=== PATIENT | female | born 1960 | race Caucasian/White ===

== ENCOUNTER 2020-01-08 19:00 | Inpatient (IN) ==
[2020-01-08] MEDS ORDERED: METOPROLOL TARTRATE 5 MG/5 ML VIAL IV ONE (19:27)
[2020-01-08] MEDS ORDERED: ASPIRIN 325 MG TABLET PO STA (19:28)
[2020-01-08] MEDS ORDERED: ACETAMINOPHEN 500 MG TABLET PO STA (19:28)
[2020-01-08] MEDS ORDERED: SODIUM CHLORIDE 0.9% 500 ML IV STA (19:28)
[2020-01-08] MEDS ORDERED: METOPROLOL TARTRATE 5 MG/5 ML VIAL IV STA (19:28)
[2020-01-08 19:37] LABS: Basophils # 0.1 10*3/uL (0.0-0.2); Basophils % 0.5 % (0.0-0.8); Eosinophils % 0.2 % (0.00-10.9); Hematocrit 42.5 VOL% (35.7-47.0); Immature Granulocytes % 0.5 %; Immature Granulocytes Absolute 0.08 #; Lymphocytes # 1.7 10*3/uL (1.4-4.0); Lymphocytes % 10.9 % (21.3-54.2); Mean Corpuscular HGB Conc 32.9 GM/DL (32-36); Mean Corpuscular Volume 91.2 FL (87-102); Mean Platelet Volume 9.8 FL (9.6-12.0); Monocytes % 9.4 % (1.7-12.7); Neutrophils % 78.5 % (38.7-73.9); Platelet Count 295 T/CUMM (130-400); Red Blood Count 4.66 MC/CUMM (3.8-5.5); Red Cell Distribution Width 13.3 % (9.3-17.3); White Blood Count 15.4 T/CUMM (4-12)
[2020-01-08] MEDS ORDERED: DILTIAZEM 50 MG/10 ML VIAL IV STA (19:39)
[2020-01-08 19:42] LABS: PT Patient Result 10.8 SECS (9.6-12.2)
[2020-01-08] MEDS: dilTIAZem Drip 125 MG/125 ML PREMIX IV SCH (19:45)
[2020-01-08 20:05] LABS: Albumin 3.9 G/DL (3.4-5.0); Bilirubin,Total 0.7 MG/DL (0.2-1.0); Calcium 8.9 MG/DL (8.5-10.1); Osmolality,Calculated 267.4 MOS/KG (273-304); Thyroid Stimulating Hormone 1.6 uIU/ml (0.358-3.74); Total Protein 7.3 G/DL (6.4-8.3)
[2020-01-08] MEDS ORDERED: POTASSIUM CHLORIDE 20 MEQ TABLET PO STA (20:22)
[2020-01-08 20:26] LABS: Apearance,Urine Slightly Hazy (Clear); Bacteria,Urine Occasional /HPF (Few); Bilirubin,Urine Negative (Negative); Blood, Urine Small mg/dL (Negative); Glucose,Urine (UA) Negative (Negative); Ketones,Urine Negative (Negative); Mucus,Urine Occasional /LPF (Occasional); Nitrite,Urine Negative (Negative); Protein,Urine Negative; RBC,Urine 16 /HPF (0-4); Squamous Epithelial Cell,Urine Occasional /HPF (0-10); Urine Color Yellow (Yellow); Urine Specific Gravity 1.009 (1.001-1.035); Urine Urobilinogen < 2.0 EU/DL (0.2-1.0); WBC,Urine 4 /HPF (0-6)
[2020-01-08 20:28] LABS: Barbiturates Screen,Urine Negative (Negative); Benzodiazepines Screen,Urine Negative (Negative); Cannabinoid Screen,Urine Negative (Negative); Opiate Screen,Urine Negative (Negative); Phencyclidine Screen,Urine Negative (Negative)
[2020-01-08] MEDS ORDERED: SODIUM CHLORIDE 0.9% 1,000 ML IV STA (20:39)
[2020-01-09] MEDS ORDERED: MAGNESIUM SULF RIDER 2 GM in PREMIX 1 EACH IV PRN (00:42)
[2020-01-09] MEDS ORDERED: MAGNESIUM SULF RIDER 4 GM in PREMIX 1 EACH IV PRN (00:42)
[2020-01-09] MEDS ORDERED: DOCUSATE SODIUM 100 MG CAPSULE PO PRN (00:42)
[2020-01-09] MEDS ORDERED: ONDANSETRON 4 MG/2 ML VIAL IV PRN (00:42)
[2020-01-09] MEDS ORDERED: POTASSIUM CHLORIDE 20 MEQ TABLET PO PRN (00:42)
[2020-01-09] MEDS ORDERED: ACETAMINOPHEN 325 MG TABLET PO PRN (00:42)
[2020-01-09] MEDS: SODIUM CHLORIDE 0.9% 1,000 ML IV SCH ×2 (04:02→14:58)
[2020-01-09 05:16] LABS: Basophils # 0.1 10*3/uL (0.0-0.2); Basophils % 0.5 % (0.0-0.8); Eosinophils # 0.1 10*3/uL (0.0-0.87); Eosinophils % 0.8 % (0.00-10.9); Hematocrit 42.5 VOL% (35.7-47.0); Immature Granulocytes % 0.4 %; Immature Granulocytes Absolute 0.05 #; Lymphocytes # 2.5 10*3/uL (1.4-4.0); Lymphocytes % 21.1 % (21.3-54.2); Mean Corpuscular HGB Conc 32.9 GM/DL (32-36); Mean Corpuscular Volume 91.6 FL (87-102); Mean Platelet Volume 11.4 FL (9.6-12.0); Monocytes % 10.6 % (1.7-12.7); Neutrophils % 66.6 % (38.7-73.9); Red Blood Count 4.64 MC/CUMM (3.8-5.5); Red Cell Distribution Width 13.5 % (9.3-17.3); White Blood Count 11.8 T/CUMM (4-12)
[2020-01-09 05:29] LABS: Platelet Count 207 T/CUMM (130-400)
[2020-01-09 05:39] LABS: Calcium 8.9 MG/DL (8.5-10.1); Osmolality,Calculated 275.7 MOS/KG (273-304)
[2020-01-09 05:59] LABS: Platelet Estimate Adequate
[2020-01-09] MEDS: dilTIAZem Drip 125 MG/125 ML PREMIX IV SCH (08:00)
[2020-01-09] MEDS: RIVAROXABAN 20 MG TABLET PO SCH (09:41)
[2020-01-09] MEDS ORDERED: DILTIAZEM CD 120 MG CAPSULE PO ONE (09:43)
[2020-01-09] MEDS: PROPAFENONE 150 MG TABLET PO SCH ×3 (09:43→21:50)
[2020-01-09] MEDS ORDERED: IBUPROFEN 600 MG TABLET PO ONE (15:11)
[2020-01-09] MEDS ORDERED: traMADol 50 MG TABLET PO PRN (15:18)
[2020-01-09] MEDS ORDERED: METOPROLOL SUCCINATE XL 25 MG TABLET PO SCH (17:00)
[2020-01-09] MEDS: CETIRIZINE 10 MG TABLET PO SCH (19:02)
[2020-01-09] MEDS: MAGNESIUM OXIDE 400 MG TABLET PO SCH (21:50)
[2020-01-10] MEDS: SODIUM CHLORIDE 0.9% 1,000 ML IV SCH (00:35)
[2020-01-10] MEDS ORDERED: RIVAROXABAN 20 MG TABLET PO SCH (08:00)
[2020-01-10] MEDS ORDERED: CETIRIZINE 10 MG TABLET PO SCH (09:00)
[2020-01-10] MEDS ORDERED: ESTRADIOL 1 MG TABLET PO SCH (09:00)
[2020-01-10] MEDS ORDERED: PANTOPRAZOLE 40 MG TABLET PO SCH (09:00)
[2020-01-10] MEDS ORDERED: DILTIAZEM CD 120 MG CAPSULE PO SCH (09:00)
[2020-01-10] MEDS: CETIRIZINE 10 MG TABLET PO SCH (09:18)
[2020-01-10] MEDS: PROPAFENONE 150 MG TABLET PO SCH (09:19)
[2020-01-10] MEDS: RIVAROXABAN 20 MG TABLET PO SCH (09:19)
[2020-01-10] MEDS: MAGNESIUM OXIDE 400 MG TABLET PO SCH (09:19)
[2020-01-10 11:56] VITALS: BP 140/68
== END 2020-01-10 14:20 | disposition home or self-care (01) | DRG 310 ==
LOC: N.ED 19:00 → N.EDINP 22:40 → N.TELEN 23:01
PROVIDERS: ADMIT Family Medicine; ATTEND Family Medicine

== ENCOUNTER 2020-02-18 07:47 | Observation (INO) ==
[2020-02-18] MEDS ORDERED: DILTIAZEM 50 MG/10 ML VIAL IV STA (07:57)
[2020-02-18] MEDS: dilTIAZem Drip 125 MG/125 ML PREMIX IV SCH (08:27)
[2020-02-18 08:35] LABS: Basophils # 0.1 10*3/uL (0.0-0.2); Basophils % 0.8 % (0.0-0.8); Eosinophils # 0.2 10*3/uL (0.0-0.87); Eosinophils % 2.4 % (0.00-10.9); Hematocrit 41.3 VOL% (35.7-47.0); Hemoglobin 13.6 GM/DL (12.0-16.0); Immature Granulocytes % 0.2 %; Immature Granulocytes Absolute 0.01 #; Lymphocytes # 1.9 10*3/uL (1.4-4.0); Lymphocytes % 28.6 % (21.3-54.2); Mean Corpuscular HGB Conc 32.9 GM/DL (32-36); Mean Corpuscular Volume 90.6 FL (87-102); Mean Platelet Volume 10.3 FL (9.6-12.0); Monocytes % 8.6 % (1.7-12.7); Neutrophils % 59.4 % (38.7-73.9); Platelet Count 332 T/CUMM (130-400); Red Blood Count 4.56 MC/CUMM (3.8-5.5); Red Cell Distribution Width 14.2 % (9.3-17.3); White Blood Count 6.6 T/CUMM (4-12)
[2020-02-18 08:46] LABS: PT Patient Result 11.2 SECS (9.8-11.9); Partial Thromboplastin Time 31.9 SECS (23.9-33.8)
[2020-02-18 08:57] LABS: Apearance,Urine CLEAR (Clear); Bacteria,Urine Occasional /HPF (Few); Bilirubin,Urine Negative (Negative); Blood, Urine Negative (Negative); Glucose,Urine (UA) Negative (Negative); Ketones,Urine Negative (Negative); Nitrite,Urine Negative (Negative); Protein,Urine Negative; RBC,Urine 1 /HPF (0-4); Squamous Epithelial Cell,Urine Occasional /HPF (0-10); Urine Color Straw (Yellow); Urine Specific Gravity 1.004 (1.001-1.035); Urine Urobilinogen < 2.0 EU/DL (0.2-1.0)
[2020-02-18 08:59] LABS: Barbiturates Screen,Urine Negative (Negative); Benzodiazepines Screen,Urine Negative (Negative); Cannabinoid Screen,Urine Negative (Negative); Opiate Screen,Urine Negative (Negative); Phencyclidine Screen,Urine Negative (Negative)
[2020-02-18 09:08] LABS: Albumin 3.6 G/DL (3.4-5.0); Bilirubin,Total 0.5 MG/DL (0.2-1.0); Calcium 9.3 MG/DL (8.5-10.1); Osmolality,Calculated 285.1 MOS/KG (273-304); Thyroid Stimulating Hormone 4.02 uIU/ml (0.358-3.74); Total Protein 7.7 G/DL (6.4-8.3)
[2020-02-18] MEDS ORDERED: DEXTROSE 50% 25 GM/50 ML VIAL IV PRN (09:59)
[2020-02-18] MEDS ORDERED: GLUCAGON 1 MG VIAL IM PRN (09:59)
[2020-02-18] MEDS ORDERED: ONDANSETRON 4 MG/2 ML VIAL IV PRN (09:59)
[2020-02-18] MEDS: MAGNESIUM OXIDE 400 MG TABLET PO SCH ×2 (11:02→20:33)
[2020-02-18] MEDS: RIVAROXABAN 20 MG TABLET PO SCH (12:39)
[2020-02-18] MEDS: ACETAMINOPHEN 325 MG TABLET PO PRN ×2 (12:39→20:35)
[2020-02-18] MEDS ORDERED: PROPAFENONE 150 MG TABLET PO SCH (15:00)
[2020-02-18] MEDS ORDERED: METOPROLOL SUCCINATE XL 25 MG TABLET PO SCH ×2 (17:00)
[2020-02-18] MEDS ORDERED: METOPROLOL SUCCINATE XL 50 MG TABLET PO SCH (17:29)
[2020-02-18] MEDS: OMEGA 3 ACID ETHYL ESTERS 1 GM CAPSULE PO SCH (20:33)
[2020-02-18] MEDS: ASCORBIC ACID 500 MG TABLET PO SCH (20:33)
[2020-02-18] MEDS: [UNRECOGNIZED DRUG - OTHER] PO SCH (20:41)
[2020-02-19 05:12] LABS: Basophils # 0.1 10*3/uL (0.0-0.2); Basophils % 0.9 % (0.0-0.8); Eosinophils # 0.2 10*3/uL (0.0-0.87); Eosinophils % 2.8 % (0.00-10.9); Hematocrit 37.9 VOL% (35.7-47.0); Hemoglobin 12.2 GM/DL (12.0-16.0); Immature Granulocytes % 0.3 %; Immature Granulocytes Absolute 0.02 #; Lymphocytes % 29.7 % (21.3-54.2); Mean Corpuscular HGB Conc 32.2 GM/DL (32-36); Mean Corpuscular Volume 92.4 FL (87-102); Mean Platelet Volume 10.4 FL (9.6-12.0); Monocytes % 8.7 % (1.7-12.7); Neutrophils % 57.6 % (38.7-73.9); Platelet Count 292 T/CUMM (130-400); Red Cell Distribution Width 14.3 % (9.3-17.3); White Blood Count 6.8 T/CUMM (4-12)
[2020-02-19 05:40] LABS: Alanine Aminotransferase 19 U/L (13-56); Albumin 3.2 G/DL (3.4-5.0); Alkaline Phosphatase 76 U/L (45-117); Aspartate Amino Transferase 13 U/L (0-37); Bilirubin,Total < 0.39 MG/DL (0.2-1.0); Blood Urea Nitrogen 24 MG/DL (7-18); Calcium 8.9 MG/DL (8.5-10.1); Estimated Glom Filtration Rate 71 ML/MIN; Free T4 (Free Thyroxine) 1.11 NG/DL (0.76-1.46); Glucose 98 MG/DL (74-106); Osmolality,Calculated 284.3 MOS/KG (273-304); Total Protein 6.6 G/DL (6.4-8.3)
[2020-02-19 07:52] VITALS: BP 122/74
[2020-02-19] MEDS: dilTIAZem Drip 125 MG/125 ML PREMIX IV SCH (08:31)
[2020-02-19] MEDS: MAGNESIUM OXIDE 400 MG TABLET PO SCH (08:32)
[2020-02-19] MEDS: RIVAROXABAN 20 MG TABLET PO SCH (08:33)
[2020-02-19] MEDS: OMEGA 3 ACID ETHYL ESTERS 1 GM CAPSULE PO SCH (08:34)
[2020-02-19] MEDS: ASCORBIC ACID 500 MG TABLET PO SCH (08:34)
[2020-02-19] MEDS: [UNRECOGNIZED DRUG - OTHER] PO SCH (08:51)
[2020-02-19] MEDS ORDERED: CETIRIZINE 10 MG TABLET PO SCH (09:00)
[2020-02-19] MEDS ORDERED: CHOLECALCIFEROL 1,000 UNIT TABLET PO SCH (09:00)
[2020-02-19] MEDS ORDERED: COENZYME Q10 100 MG CAPSULE PO SCH (09:00)
[2020-02-19] MEDS ORDERED: CHLORTHALIDONE 25 MG TABLET PO SCH (09:00)
[2020-02-19] MEDS ORDERED: PANTOPRAZOLE 40 MG TABLET PO SCH (09:00)
[2020-02-19] MEDS ORDERED: FOLIC ACID 1 MG TABLET PO SCH (09:00)
[2020-02-19] MEDS ORDERED: THYROID 60 MG TABLET PO SCH (09:00)
[2020-02-19] MEDS ORDERED: MULTIVITAMIN (BEROCCA) TABLET PO SCH (09:00)
[2020-02-19] MEDS ORDERED: [UNRECOGNIZED DRUG - OTHER] PO SCH (09:00)
[2020-02-19] MEDS ORDERED: ADRENAL COMPLEX PO SCH (09:00)
[2020-02-19] MEDS ORDERED: [UNRECOGNIZED DRUG - OTHER] TOP SCH (09:00)
[2020-02-19] MEDS ORDERED: MULTIVITAMIN (CENTRUM) TABLET PO SCH (09:00)
[2020-02-19] MEDS ORDERED: POLYETHYLENE GLYCOL POWDER 17 GM PACK PO SCH (09:30)
[2020-02-19] MEDS ORDERED: DOCUSATE SODIUM 100 MG CAPSULE PO SCH (09:30)
[2020-02-19] MEDS ORDERED: DILTIAZEM 60 MG TABLET PO PRN (10:04)
[2020-02-19] MEDS ORDERED: DRONEDARONE 400 MG TABLET PO SCH (17:00)
[2020-02-23] MEDS ORDERED: METHOTREXATE 2.5 MG TABLET PO SCH (10:02)
== END 2020-02-19 12:31 | disposition home or self-care (01) ==
LOC: N.ED 07:47 → N.EDINP 07:47 → SUATTDRO 09:57 → N.TELES 10:25
PROVIDERS: ADMIT Internal Medicine; ATTEND Internal Medicine